=== PATIENT | male | born 1955 | race African-American/Black ===

== ENCOUNTER 2019-08-16 12:05 | Emergency (ER) | payer MEDICARE, OTHER ==
[~2019-08-16] VITALS: Ht 175.3 cm; Wt 85.0 kg
[2019-08-16 12:10] VITALS: BP 106/74
== END 2019-08-16 14:09 | disposition left against medical advice (07) ==
LOC: ER 12:05
DX: R55 Syncope and collapse (principal); Z53.21 Procedure and treatment not carried out due to patient leaving prior to being seen by health care provider

== ENCOUNTER 2019-08-16 15:10 | Inpatient (IN) | payer OTHER ==
[~2019-08-16] VITALS: Ht 185.4 cm; Wt 86.7 kg
[2019-08-16 18:08] LABS: CHLORIDE 108 mEq/L (98-107); HEMATOCRIT. 43.9 % (42.0-52.0); HEMOGLOBIN. 14.6 g/dL (14.0-18.0); MEAN CORPUSCULAR HEMOGLOBIN 29.4 pg (28.0-32.0); MEAN CORPUSCULAR VOLUME 88.2 fL (80.0-94.0); MEAN PLATELET VOLUME 8.9 fl (7.4-10.4); PLATELET 245 x1000/uL (130-400); RED BLOOD CELL COUNT 4.98 mill/uL (4.7-6.1); RED CELL DISTRIBUTION WIDTH 13.9 % (11.6-14.6)
[2019-08-16 18:29] LABS: PLATELET ESTIMATE NORMAL
[2019-08-16] MEDS ORDERED: ASPIRIN 325MG EC TABLET PO ONE (19:00)
[2019-08-16] MEDS ORDERED: SODIUM CHLORIDE 0.9% 1,000 ML IV ONE (20:54)
[2019-08-17 18:05] VITALS: BP_SYST 131; BP_SYST 134; BP_SYST 146; BP_DIAS 82; BP_DIAS 90; BP_DIAS 93
[2019-08-17 18:21] VITALS: BP 131/82
[2019-08-17 20:00] VITALS: BP 132/80
[2019-08-17 20:38] LABS: BASOPHILS % 0.5 % (0.0-2.0); EOSINOPHILS % 1.4 % (0.0-5.0); HEMATOCRIT. 45.5 % (42.0-52.0); LYMPHOCYTES % 8.3 % (20.0-50.0); MEAN CORPUSCULAR HEMOGLOBIN 29.4 pg (28.0-32.0); MEAN CORPUSCULAR VOLUME 89.1 fL (80.0-94.0); MEAN PLATELET VOLUME 9.2 fl (7.4-10.4); MONOCYTES % 11.1 % (2.0-8.0); NEUTROPHILS % 78.7 % (40.0-76.0); PLATELET 271 x1000/uL (130-400); RED CELL DISTRIBUTION WIDTH 14.1 % (11.6-14.6)
[2019-08-17] MEDS ORDERED: DOXAZOSIN MESYLATE 2MG TABLET PO SCH (21:00)
[2019-08-17] MEDS ORDERED: DUTASTERIDE 0.5MG CAPSULE PO SCH (21:00)
[2019-08-18] VITALS: BP 105/64
[2019-08-18 04:00] VITALS: BP 150/78
[2019-08-18] MEDS ORDERED: DOXA2TAB2 MT (07:32)
[2019-08-18] MEDS ORDERED: DUTA0.5C2 PO (07:32)
[2019-08-18 08:00] VITALS: BP 123/85
[2019-08-18 11:48] VITALS: BP 123/85
[2019-08-18] MEDS ORDERED: DUTASTERIDE 0.5MG CAPSULE PO SCH (21:00)
[2019-08-18] MEDS ORDERED: DOXAZOSIN MESYLATE 2MG TABLET PO SCH (21:00)
== END 2019-08-18 13:15 | disposition home or self-care (01) | DRG 316 ==
LOC: ER 15:10 → 5WST 20:56 → ENRESERV 08-17 16:31 → CANRESERV 08-17 16:31 → ENRESERV 08-17 16:33
PROVIDERS: ADMIT Internal Medicine Critical Care Medicine; ATTEND Internal Medicine Critical Care Medicine
DX: I95.89 Other hypotension (principal); I95.2 Hypotension due to drugs; N40.0 Benign prostatic hyperplasia without lower urinary tract symptoms; I49.8 Other specified cardiac arrhythmias
CPT/HCPCS: 36415; 71045; 80053; 83880; 84153; 84443; 84484; 85025; 93005; 93880; 99285; J7030; G0103